=== PATIENT | male | born 1975 | race Caucasian/White ===

== ENCOUNTER 2020-09-05 12:09 | Outpatient (CLI) | payer MEDICARE, SELFPAY ==
--- NOTE | 2020-09-06 10:17 | WPDNEUROLOGY ---
Neurology EEG Report General Information Date of Study: 09/05/20 TEST eeg DIAGNOSIS seizures CONDITION OF RECORDING awake ,drowsy and sleep EEG NUMBER [id number] CLINICAL HISTORY Patient reported that he has history of grand mal seizures for long time EEG DESCRIPTION basic resting occipital frequency consists of large amount of well-organized low to medium voltage 9 to 11 hertz per second alpha admixed with low-voltage 15 to 18 hertz per second beta. During drowsiness low-voltage beta activity is seen diffusely admixed with waxing and waning posterior alpha rhythm. Bilateral symmetrical sleep activity is seen during sleep along with symmetrical sleep spindles. Photic stimulation produced normal drive. hyperventilation not done Non paroxysmal. Nonfocal. Nonlateralizing. IMPRESSION Normal EEG
== END 2020-09-05 12:10 | disposition home or self-care (01) ==
PROVIDERS: Visit Provider Psychiatry & Neurology Neurology
DX: R56.9 Unspecified convulsions (principal)
CPT/HCPCS: 95816